=== PATIENT | male | born 1950 | race Caucasian/White ===

== ENCOUNTER 2023-05-14 08:16 | Outpatient (CLI) | payer OTHER, MEDICARE, SELFPAY | END 2023-05-14 08:17 | disposition home or self-care (01) | PROVIDERS: PCP Family Medicine; Visit Provider Family Medicine | DX: M54.16 Radiculopathy, lumbar region (principal); M51.36 Other intervertebral disc degeneration, lumbar region | CPT/HCPCS: 62323; J0702; Q9966 ==

== ENCOUNTER 2023-12-17 07:48 | Outpatient (CLI) | payer OTHER, MEDICARE, SELFPAY | END 2023-12-17 07:49 | disposition home or self-care (01) | LOC: INJ CL 07:49 | PROVIDERS: PCP Family Medicine; Visit Provider Family Medicine | DX: M54.16 Radiculopathy, lumbar region (principal); M51.36 Other intervertebral disc degeneration, lumbar region | CPT/HCPCS: 62323; J0702; Q9966 ==

== ENCOUNTER 2024-04-28 07:52 | Outpatient (CLI) | payer OTHER, MEDICARE, SELFPAY | END 2024-04-28 07:53 | disposition home or self-care (01) | PROVIDERS: PCP Family Medicine; Visit Provider Family Medicine | DX: M54.16 Radiculopathy, lumbar region (principal); M51.36 Other intervertebral disc degeneration, lumbar region | CPT/HCPCS: 62323; J0702; Q9966 ==

== ENCOUNTER 2024-09-04 08:40 | Outpatient (CLI) | payer OTHER, MEDICARE, SELFPAY | END 2024-09-04 08:41 | disposition home or self-care (01) | LOC: INJ CL 08:41 | PROVIDERS: PCP Family Medicine; Visit Provider Family Medicine | DX: M54.16 Radiculopathy, lumbar region (principal); M51.369 Other intervertebral disc degeneration, lumbar region without mention of lumbar back pain or lower extremity pain | CPT/HCPCS: 62323; J0702; Q9966 ==

== ENCOUNTER 2024-12-22 07:04 | Outpatient (CLI) | payer OTHER, MEDICARE, SELFPAY | END 2024-12-22 07:05 | disposition home or self-care (01) | LOC: INJ CL 07:06 | PROVIDERS: PCP Family Medicine; Visit Provider Family Medicine | DX: M48.062 Spinal stenosis, lumbar region with neurogenic claudication (principal); M54.16 Radiculopathy, lumbar region; M51.26 Other intervertebral disc displacement, lumbar region | CPT/HCPCS: 64483; J1100; Q9966 ==